=== PATIENT | female | born 1955 | race Two or more races ===

== ENCOUNTER → 2024-12-06 | Outpatient (CLI) | payer MEDICARE, BC, SELFPAY ==
--- NOTE | 2024-12-06 | XR_ITS ---
Examination: Lumbar spine, 5 views Technique: Lumbar spine AP, lateral, coned lateral lower lumbar spine, bilateral obliques 5 views Exam date and time: December 06, 2024, 1301 hours, comparison January 01, 2021 INDICATIONS: Low back pain beginning 4 days ago. FINDINGS: Severe osteopenia. IVC filter L2-L4 Partial visualization right hip arthroplasty Advanced diffuse facet arthropathy. Heavy abdominal aortic calcification Mild chronic fracture L2 vertebral body Diffuse mild to moderate lumbar degenerative disc disease most prominent at L5-S1 IMPRESSION: Mild to moderate diffuse lumbar degenerative disc disease with significant spinal stenosis
== END | disposition home or self-care (01) ==
PROVIDERS: PCP Internal Medicine; Referring Provider Internal Medicine; Visit Provider Internal Medicine
DX: M51.360 Other intervertebral disc degeneration, lumbar region with discogenic back pain only (principal); M48.061 Spinal stenosis, lumbar region without neurogenic claudication
CPT/HCPCS: 72110